=== PATIENT | female | born 2000 | race Caucasian/White ===

== ENCOUNTER → 2020-01-04 12:16 | Outpatient (CLI) | payer OTHER, SELFPAY ==
[2020-01-05 14:00] LABS: ANA Screen, IFA Negative
== END ==
PROVIDERS: Family Provider Family Medicine; PCP Family Medicine; Referring Provider Dermatology; Visit Provider Dermatology
DX: Z13.89 Encounter for screening for other disorder (principal)
CPT/HCPCS: 36415; 86038

== ENCOUNTER → 2020-07-19 08:36 | Outpatient (CLI) | payer OTHER, SELFPAY ==
[2020-07-20 16:14] LABS: Candida species Negative (Negative); Gardnerella vaginalis Negative (Negative); Trichomoas vaginalis Negative (Negative)
== END ==
PROVIDERS: Family Provider Family Medicine; PCP Family Medicine; Visit Provider Specialist
DX: N90.89 Other specified noninflammatory disorders of vulva and perineum (principal)
CPT/HCPCS: 87480; 87510; 87660

== ENCOUNTER → 2020-07-22 12:22 | Outpatient (CLI) | payer OTHER, SELFPAY ==
[2020-07-22 15:48] LABS: HIV 1 & 2 Ab/Ag 4th Gen Combo NEGATIVE (NEGATIVE); Hep C Virus Ab w/Reflex Quant NEGATIVE s/c (NEGATIVE); Hepatitis B Surface Antigen NEGATIVE s/c (NEGATIVE)
[2020-07-23 03:22] LABS: HSV 2 IGG AB < 0.91 index (0.00-0.90); HSV1IGG 2.39 index (0.00-0.90)
[2020-07-23 05:21] LABS: RPR Screen Non Reactive (Non Reactive)
== END ==
PROVIDERS: Family Provider Family Medicine; PCP Family Medicine; Referring Provider Obstetrics & Gynecology; Visit Provider Specialist
DX: Z20.2 Contact with and (suspected) exposure to infections with a predominantly sexual mode of transmission (principal)
CPT/HCPCS: 36415; 86592; 86695; 86696; 86803; 87340; 87389; 87491; 87591

== ENCOUNTER → 2020-10-27 08:17 | Outpatient (CLI) | payer OTHER, SELFPAY ==
[2020-10-27 10:43] LABS: COVID19 -Nasal RAPID Negative (Negative)
== END ==
PROVIDERS: Family Provider Family Medicine; PCP Family Medicine; Visit Provider Obstetrics & Gynecology
DX: J02.9 Acute pharyngitis, unspecified (principal)
CPT/HCPCS: 87635

== ENCOUNTER → 2024-05-15 10:04 | Outpatient (CLI) | payer OTHER, SELFPAY ==
--- NOTE | 2024-05-15 10:07 | EKG_ITS ---
[facility] [id number] [address] Test Date: 2024-05-15 Pat Name: Galina Zaragoza Department: Room: Gender: Female [employer]: : [id number] Requested By: Order Number: [id number] Reading MD: Bo Chung MD Measurements Intervals [place] Rate: 89 P: 66 SC: 134 QRS: 65 QRSD: 90 T: 30 QT: 354 QTc: 430 Interpretive Statements Normal sinus rhythm with sinus arrhythmia Electronically Signed On 05-15-2024 12:08:45 PDT by Bo Chung MD
== END ==
PROVIDERS: Family Provider Family Medicine; PCP Family Medicine; Referring Provider Psychiatry & Neurology Child & Adolescent Psychiatry; Visit Provider Psychiatry & Neurology Child & Adolescent Psychiatry
DX: F41.8 Other specified anxiety disorders (principal); F90.0 Attention-deficit hyperactivity disorder, predominantly inattentive type
CPT/HCPCS: 93005